=== PATIENT | female | born 1930 | race Caucasian/White ===

== ENCOUNTER 2018-10-18 10:42 | Inpatient (IN) | payer OTHER ==
--- NOTE | 2018-10-18 10:42 | EDPHY ---
H & P Time Seen by Provider: 10/18/18 10:42 HPI/ROS: CHIEF COMPLAINT: Head injury HISTORY OF PRESENT ILLNESS: Patient is a 88-year-old female brought here by EMS with reported ground level mechanical fall with reports of left scalp laceration. 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 She denies any loss of consciousness and denies pain at this time. She denies vision changes. She is on no blood thinners. She takes no prescribed medication according to her son who is her caregiver but did not witness the fall this morning. REVIEW OF SYSTEMS: Constitutional: No fever, no chills. Eyes: No discharge. ENT: No sore throat. Cardiovascular: No chest pain, no palpitations. Respiratory: No cough, no shortness of breath. Gastrointestinal: No abdominal pain, no vomiting. Genitourinary: No hematuria. Musculoskeletal: No back pain. Skin: No rashes. Neurological: No headache. Physical Exam: General Appearance: Alert and no distress. ENT: normal dentition. No tonsillar exudate or swelling. Eyes: Pupils equal and round no injection. Respiratory: Chest is nontender, lungs are clear to auscultation. Cardiac: regular rate and rhythm. No lower extremity edema Gastrointestinal: Abdomen is soft and nontender, no masses, bowel sounds normal. Musculoskeletal: Neck is supple and nontender. No hip pain. Full range of motion of bilateral legs Extremities have full range of motion and are nontender without deformity Skin: No rashes or lesions. 2 cm laceration superior to the left eyebrow Neuro: Cranial nerves grossly intact. No nystagmus. No ulnar drift. Equal grasp bilateral hands. Ambulatory. Constitutional: Initial Vital Signs Temperature (C) 36.4 C 10/18/18 10:42 Heart Rate 48 L 10/18/18 10:42 Respiratory Rate 18 10/18/18 10:42 Blood Pressure 211/88 H 10/18/18 10:42 O2 Sat (%) 95 10/18/18 10:42 O2 Delivery Mode Room Air Allergies/Adverse Reactions: Penicillins Allergy (Verified 10/18/18 14:32) Unknown Home Medications: Medication Instructions Recorded Herbals/Supplements -Info Only 1 ea PO DAILY 10/18/18 Medical Decision Making - Diagnostics Imaging Results: Imaging Impressions Head CT 10/18/18 10:47 Impression: 1. No acute intracranial process or cervical spine fracture/subluxation. 2. Age-appropriate generalized cerebral volume loss with sequelae of chronic microvascular ischemic disease. 3. Old left cerebellar infarct. 4. Multilevel degenerative spondylosis of the cervical spine. 5. Heterogeneity and expansion of the left skull base, probably related to chronic sinusitis. Findings and recommendations discussed with Jose Luis Engle at 1144 hour , 10/18/2018. Cervical Spine CT 10/18/18 10:48 Impression: 1. No acute intracranial process or cervical spine fracture/subluxation. 2. Age-appropriate generalized cerebral volume loss with sequelae of chronic microvascular ischemic disease. 3. Old left cerebellar infarct. 4. Multilevel degenerative spondylosis of the cervical spine. 5. Heterogeneity and expansion of the left skull base, probably related to chronic sinusitis. Findings and recommendations discussed with Jose Luis Engle at 1144 hour , 10/18/2018. Procedures: Procedure: Laceration repair. Verbal consent was obtained from the patient. The 2.5 cm laceration on the left forehead was anesthetized in the usual fashion. The wound was irrigated, draped and explored to its base with a gloved finger. There were no deep structures involved. No tendon injury was identified. The wound was repaired with 5-0 nylon, 7 sutures were placed. The wound repair was without complication. The procedure was performed by myself. ED Course/Re-evaluation: 80-year-old female here with mechanical fall resulting in scalp laceration. Imaging was negative for fracture or bleed. She was at her neurologic baseline. On further investigation is found that patient was having difficulty ambulating and her caregiver which is or some was having difficulty taking care of her. She was admitted for further treatment evaluation of increased weakness , failure to thrive and possible placement in rehab. - Data Points Laboratory Results: Laboratory Results 10/18/18 14:28 10/18/18 14:28 10/18/18 10/18/18 14:28 14:28 WBC 7.85 10^3/uL 10^3/uL (3.80-9.50) RBC 4.72 10^6/uL 10^6/uL (4.18-5.33) Hgb 15.1 g/dL g/dL (12.6-16.3) Hct 45.9 % % (38.0-47.0) MCV 97.2 fL fL (81.5-99.8) MCH 32.0 pg pg (27.9-34.1) MCHC 32.9 g/dL g/dL (32.4-36.7) RDW 13.0 % % (11.5-15.2) Plt Count 236 10^3/uL 10^3/uL (150-400) MPV 11.6 fL fL (8.7-11.7) Neut % (Auto) 58.9 % % (39.3-74.2) Lymph % (Auto) 32.6 % % (15.0-45.0) [place] % (Auto) 5.5 % % (4.5-13.0) Eos % (Auto) 2.3 % % (0.6-7.6) Baso % (Auto) 0.4 % % (0.3-1.7) Nucleat RBC Rel Count 0.0 % % (0.0-0.2) Absolute Neuts (auto) 4.63 10^3/uL 10^3/uL (1.70-6.50) Absolute Lymphs (auto) 2.56 10^3/uL 10^3/uL (1.00-3.00) Absolute Monos (auto) 0.43 10^3/uL 10^3/uL (0.30-0.80) Absolute Eos (auto) 0.18 10^3/uL 10^3/uL (0.03-0.40) Absolute Basos (auto) 0.03 10^3/uL 10^3/uL (0.02-0.10) Absolute Nucleated RBC 0.00 10^3/uL 10^3/uL (0-0.01) Immature Gran % 0.3 % % (0.0-1.1) Immature Gran # 0.02 10^3/uL 10^3/uL (0.00-0.10) Sodium 141 mEq/L mEq/L (135-145) Potassium 3.7 mEq/L mEq/L (3.5-5.2) Chloride 106 mEq/L mEq/L (97-110) Carbon Dioxide 24 mEq/l mEq/l (22-31) Anion Gap 11 mEq/L mEq/L (6-14) BUN 26 mg/dL H mg/dL (7-23) Creatinine 0.7 mg/dL mg/dL (0.6-1.0) Estimated GFR > 60 Glucose 106 mg/dL H mg/dL (70-100) Calcium 9.2 mg/dL mg/dL (8.5-10.4)
[2018-10-18 14:37] LABS: PLATELET COUNT 236 10^3/uL (150-400)
[2018-10-18] MEDS ORDERED: ONDANSETRON DISINTEGRATING 4 MG TAB PO PRN (15:13)
[2018-10-18] MEDS ORDERED: ACETAMINOPHEN 325 MG TAB PO PRN (15:13)
[2018-10-18] MEDS ORDERED: ONDANSETRON 4 MG/2 ML VIAL IVP PRN (15:13)
--- NOTE | 2018-10-18 15:18 | PDGENHP ---
History and Physical - Chief Complaint Fall - History of Present Illness Lindsey Kohli is an 88 yo F with a PMHx of HTN who presents to [facility] after mechanicall fall this morning. Her son is at the bedside who has helped with hx taking. They report that patient was bending over to get batteries for her hearing when she lost balance and fell. It is reported that she hit the L side of her head and face. She denies any LOC, chest pain, SOB, palpitations, LH/ dizziness, headache, n/v, d/c. Per her son, this is the 3rd time she has falled over the past 6 months. History Information - Allergies/Home Medication List Allergies/Adverse Reactions: Penicillins Allergy (Verified 10/18/18 14:32) Unknown Home Medications: Herbals/Supplements -Info Only 1 ea PO DAILY 10/18/18 [Last Taken Unknown] I have personally reviewed and updated: family history, medical history, social history, surgical history - Past Medical History hypertension - Surgical History Reports: no pertinent surgical hx - Family History Positive for: non-pertinent - Social History Smoking Status: Never smoked Review of Systems Review of Systems: ROS: 10pt was reviewed & negative except for what was stated in HPI & below Physical Exam Physical Exam: Temp Pulse Resp BP Pulse Ox 36.4 C 81 18 172/98 H 98 10/18/18 10:42 10/18/18 12:30 10/18/18 12:30 10/18/18 12:30 10/18/18 12:30 Constitutional: no apparent distress Eyes: PERRL Ears, Nose, Mouth, Throat: moist mucous membranes Cardiovascular: regular rate and rhythym Respiratory: no respiratory distress Gastrointestinal: soft, non-tender abdomen Skin: warm Musculoskeletal: generalized weakness Neurologic: AAOx3 Psychiatric: interacting appropriately Lab Data & Imaging Review 10/18/18 14:28 10/18/18 14:28 WBC 7.85 10^3/uL (3.80-9.50) 10/18/18 14:28 RBC 4.72 10^6/uL (4.18-5.33) 10/18/18 14:28 Hgb 15.1 g/dL (12.6-16.3) 10/18/18 14:28 Hct 45.9 % (38.0-47.0) 10/18/18 14:28 MCV 97.2 fL (81.5-99.8) 10/18/18 14: MCH 32.0 pg (27.9-34.1) 10/18/18 14: MCHC 32.9 g/dL (32.4-36.7) 10/18/18 14: RDW 13.0 % (11.5-15.2) 10/18/18 14:28 Plt Count 236 10^3/uL (150-400) 10/18/18 14:28 MPV 11.6 fL (8.7-11.7) 10/18/18 14:28 Neut % (Auto) 58.9 % (39.3-74.2) 10/18/18 14: Lymph % (Auto) 32.6 % (15.0-45.0) 10/18/18 14: [place] % (Auto) 5.5 % (4.5-13.0) 10/18/18 14: Eos % (Auto) 2.3 % (0.6-7.6) 10/18/18 14: Baso % (Auto) 0.4 % (0.3-1.7) 10/18/18 14: Nucleat RBC Rel Count 0.0 % (0.0-0.2) 10/18/18 14: Absolute Neuts (auto) 4.63 10^3/uL (1.70-6.50) 10/18/18 14: Absolute Lymphs (auto) 2.56 10^3/uL (1.00-3.00) 10/18/18 14: Absolute Monos (auto) 0.43 10^3/uL (0.30-0.80) 10/18/18 14: Absolute Eos (auto) 0.18 10^3/uL (0.03-0.40) 10/18/18 14: Absolute Basos (auto) 0.03 10^3/uL (0.02-0.10) 10/18/18 14: Absolute Nucleated RBC 0.00 10^3/uL (0-0.01) 10/18/18 14: Immature Gran % 0.3 % (0.0-1.1) 10/18/18 14: Immature Gran # 0.02 10^3/uL (0.00-0.10) 10/18/18 14:28 Sodium 141 mEq/L (135-145) 10/18/18 14:28 Potassium 3.7 mEq/L (3.5-5.2) 10/18/18 14:28 Chloride 106 mEq/L (97-110) 10/18/18 14:28 Carbon Dioxide 24 mEq/l (22-31) 10/18/18 14:28 Anion Gap 11 mEq/L (6-14) 10/18/18 14:28 BUN 26 mg/dL (7-23) H 10/18/18 14:28 Creatinine 0.7 mg/dL (0.6-1.0) 10/18/18 14:28 Estimated GFR > 60 10/18/18 14:28 Glucose 106 mg/dL (70-100) H 10/18/18 14:28 Calcium 9.2 mg/dL (8.5-10.4) 10/18/18 14:28 Assessment & Plan Assessment: Mechanical Falls - Fall this AM while bending over - Reported this is 3rd fall in 3 months - Pt denies any prodromal symptoms - Likely mechanical in nature - Head CT, C-Spine on admission negative for acute injury - PT/OT ordered - Will check orthostatics given mildly elevated BUN Hypertensive Urgency - BP initially elevated to 211/88, improved to 172/98 with no intervention - Has a hx of HTN per son, however stopped BP medications years ago due to side effects - Will continue to monitor BP, will hold off on adding oral antihypertensives at this time - PRN Hydralazine for SBP >180 FEN: Regular DVT PPx; SubQ Heparin Code: DNR Dispo: Admit to Observation
--- NOTE | 2018-10-18 17:32 | ASMTCMCOM ---
CM Note CM Note Notes: Pt presented to ED via EMS from home after having a fall while bending over to hop picker her hearing aid battery. Pt fell and hit the left side of her head and face. Pt admitted for multiple falls, FTT, HTN and is very hard of hearing without her hearing aids. Pt is weak and was unable to stand or ambulate safely in the ED. Pt lives at home with her son, Darío ([phone]), who has been the / primary caregiver of the pt for the past 4-5 years. Darío is at bedside and states pt has had approx 4 falls in the past 4 months. Darío states he is having increased difficulty caring for the pt recently and states "I do everything all the time, it is very straining." Pt usually uses a walker and is able to dress herself, get to and from the bathroom without assistance, etc. but has difficulty getting up their stairs, bathing, cooking, etc. Darío states pt "eats like a horse" and has gained weight recently. We discussed additional homecare assistance and pt and Darío are interested in non-skilled and skilled options. We also discussed that pt may be recommended to DC to SNF for short term rehab and Darío was at first resistant to the idea but later was open to it. Pt's PCP is Dr Ryann Altamirano at [facility]. This CM called PC on their [facility] ) ( # for CM use only) and spoke with ARNOLDO Lauren; pt's last visit at was 06/23/17. Xin also states pt was visited by one of their Behavioral Health Providers at home in May 2018. CM relayed pt's recent falls, reason for ED visit & admission, and that if pt is discharged home, pt's son Darío could use additional home assistance/support and care coordination. CM requested PC fax over pt's chart summary. Received faxed pt's summary; pt's allergic to Penicillins but otherwise the summary did not list any Home Medications, or Surgical history. Pt's 'Problem List' included "social isolation related to decreased hearing," Status Post CVA, and Acute UTI. PT/OT ordered. Exact DC needs TBD but anticipate pt to DC Home w/HHC vs SNF. CM to follow. Date Signed: 10/18/2018 05:31 PM Electronically Signed By:Seema Ireland RN
[2018-10-18] MEDS: HEPARIN 5,000 UNIT/0.5 ML INJ SC SCH (21:34)
--- NOTE | 2018-10-18 22:14 | CPEKG ---
Test Reason : OPEN Blood Pressure : / mmHG Vent. Rate : 099 BPM Atrial Rate : 103 BPM P-R Int : 185 ms QRS Dur : 091 ms QT Int : 375 ms P-R-T Axes : 076 -61 063 degrees QTc Int : 482 ms Sinus tachycardia Atrial premature complex Left anterior fascicular block Left ventricular hypertrophy Anterior Q waves, possibly due to LVH Confirmed by Varsha Polo ([id number]) on 10/18/2018 10:14:30 PM Referred By: Lynn Mcfadden Confirmed By:Varsha Polo
[2018-10-19] MEDS: HEPARIN 5,000 UNIT/0.5 ML INJ SC SCH ×2 (10:43→22:25)
--- NOTE | 2018-10-19 13:52 | HOSPPROG ---
Hospitalist Progress Note Assessment/Plan: 88 year old female with pmh of HTN admitted after suffering a mechanical fall. Mechanical Falls- mechanical fall per son. apparently has become generally weaker over the last few months and is falling more. She has a laceration over her left eye with sutures in place and echymoses. Imaging reviewed as patient is new to me and no acute abnormality. Labs reviewed and are WNL. -PT/OT -likely needs placement. Hypertensive Urgency- resolved but still with elevated BP. She takes no medications as her son apparently stopped them years ago. -monitor BP -cont hydralazine for systolic over 170 FEN: Regular DVT PPx; SubQ Heparin Code: DNR Dispo: likely dc to snf, if able today, if not then in am. Subjective: no complaints. misses her son. no pain, or other complaints. Objective: Vital Signs Temp Pulse Resp BP Pulse Ox 36.4 C 84 16 160/78 H 94 10/19/18 13:30 10/19/18 13:30 10/19/18 13:30 10/19/18 13:30 10/19/18 13:30 10/18/18 10/19/18 10/20/18 05:59 05:59 05:59 Output Total 300 Balance -300 - Physical Exam Constitutional: no apparent distress Eyes: PERRL, anicteric sclera, EOMI Ears, Nose, Mouth, Throat: moist mucous membranes, hearing normal, ears appear normal, no oral mucosal ulcers Cardiovascular: regular rate and rhythym, no murmur, rub, or gallop Respiratory: no respiratory distress, no rales or rhonchi, clear to auscultation Gastrointestinal: normoactive bowel sounds, soft, non-tender abdomen, no palpable masses Genitourinary: no bladder fullness, no bladder tenderness, no renal bruits Skin: other (sutures in place over left eye brow. Echymoses to left eye ) Musculoskeletal: generalized weakness Neurologic: other (knows she is in [place], and her name, does not know what year or what hospital. ) Psychiatric: poor judgement, poor memory ICD10 Worksheet Patient Problems: Problems Problem Status Onset Weakness Acute - ICD10 Problem Qualifiers (1) Weakness
--- NOTE | 2018-10-19 18:00 | PDMN ---
Medical Necessity Medical necessity: [facility] General Admission: 88 yo w/ mechanical fall (3rd fall in last 6mo). Initially OBS for workup but pt is generally weak w/ reports of worsening weakness over last few months, multiple falls. PT/OT consults. Per OT Pt limited by decreased overall endurance, decreased safety/ mobility, and poor attention to safety. All which interfere with safe/I ADLS. Pt is a significant fall risk. Pt will require additional MN as she is unsafe to go home. Change to IP status 10/19/18@1730 per MD order.
[2018-10-20 05:42] LABS: PLATELET COUNT 180 10^3/uL (150-400)
[2018-10-20] MEDS: hydrALAZINE 20 MG/ML VIAL IVP PRN (08:22)
[2018-10-20] MEDS: HEPARIN 5,000 UNIT/0.5 ML INJ SC SCH ×2 (08:30→20:03)
[2018-10-20] MEDS ORDERED: amLODIPine BESYLATE 5 MG TAB PO SCH (09:00)
--- NOTE | 2018-10-20 09:18 | ASMTCMCOM ---
CM Note CM Note Notes: LATE NOTE ENTRY - NOTE IS REFLECTIVE OF 10/19/18 CM notified by Alyce, PT and [employer] that pt reported to them that her son is mean and calls her stupid. CM encouraged them to call APS if they felt like it was necessary. CM spoke to Dr. Rodriguez later on during the day and he reported that pt is pretty confused. CM did not make an APS report. PT is recommending SNF. CM called pts son Darío and left a msg requesting a call back. CM to follow. Plan: TBD Date Signed: 10/20/2018 09:18 AM Electronically Signed By:SUZY Garcia
--- NOTE | 2018-10-20 12:37 | ASMTCMCOM ---
CM Note CM Note Notes: I spoke with patient's son about current d/c recommendation for SNF. He is amenable but wants to tour [facility] first. Jefferson from [facility] here to assess patient and feels that they can clinically accept. Case Management will follow. Current Discharge plan: [facility] Date Signed: 10/20/2018 12:36 PM Electronically Signed By:Adilene Benoit RN
--- NOTE | 2018-10-20 15:03 | HOSPPROG ---
Hospitalist Progress Note Assessment/Plan: 88 year old female with pmh of HTN admitted after suffering a mechanical fall. Mechanical Falls- mechanical fall per son. apparently has become generally weaker over the last few months and is falling more. She has a laceration over her left eye with sutures in place and echymoses. Imaging reviewed as patient is new to me and no acute abnormality. Labs reviewed and are WNL. -PT/OT -likely needs placement. Hypertensive Urgency- resolved but still with elevated BP. She takes no medications as her son apparently stopped them years ago. I restarted norvasc at 5mg. Her son seemed concerned that this would make the patient confused. She has seemed to respond appropriately so far. -monitor BP -scheduled norvasc 5mg daily -cont hydralazine for systolic over 170 FEN: Regular DVT PPx; SubQ Heparin Code: DNR Dispo: Will need 3 midnights for discharge to SNF. likely in am. Subjective: patient in good spirits. no complaints. Objective: Vital Signs Temp Pulse Resp BP Pulse Ox 36.4 C 80 14 146/84 H 94 10/20/18 12:12 10/20/18 12:12 10/20/18 12:12 10/20/18 12:12 10/20/18 12:12 Laboratory Results 10/20/18 04:58 10/20/18 04:58 10/19/18 10/20/18 10/21/18 05:59 05:59 05:59 Intake Total 240 Balance 240 - Physical Exam Constitutional: no apparent distress, appears nourished, not in pain Eyes: PERRL, anicteric sclera, EOMI Ears, Nose, Mouth, Throat: moist mucous membranes, hearing normal, ears appear normal, no oral mucosal ulcers Cardiovascular: regular rate and rhythym, no murmur, rub, or gallop Respiratory: no respiratory distress, no rales or rhonchi, clear to auscultation Gastrointestinal: normoactive bowel sounds, soft, non-tender abdomen, no palpable masses Genitourinary: no bladder fullness, no bladder tenderness, no renal bruits Skin: no rashes or abrasions, no fluctuance, no induration Musculoskeletal: full muscle strength, no muscle tenderness, normal joint ROM Neurologic: AAOx3, sensation intact bilaterally Psychiatric: interacting appropriately, not anxious, not encephalopathic, thought process linear Lymph, Heme, Immunologic: no cervical LAD, no supraclavicular LAD ICD10 Worksheet Patient Problems: Problems Problem Status Onset Weakness Acute - ICD10 Problem Qualifiers (1) Weakness
[2018-10-21] MEDS: hydrALAZINE 20 MG/ML VIAL IVP PRN (05:02)
[2018-10-21 09:12] LABS: PLATELET COUNT 235 10^3/uL (150-400)
[2018-10-21] MEDS: HEPARIN 5,000 UNIT/0.5 ML INJ SC SCH ×2 (09:47→20:09)
--- NOTE | 2018-10-21 12:56 | HOSPPROG ---
Hospitalist Progress Note Assessment/Plan: 88 year old female with pmh of HTN admitted after suffering a mechanical fall. Mechanical Falls- mechanical fall per son. apparently has become generally weaker over the last few months and is falling more. She has a laceration over her left eye with sutures in place and echymoses. Imaging reviewed as patient is new to me and no acute abnormality. Labs reviewed and are WNL. -PT/OT -needs sniff placement. Awaiting 3rd midnight due to Medicare Hypertensive Urgency- resolved but still with elevated BP. She takes no medications as her son apparently stopped them years ago. I restarted norvasc at 5mg. Her son seemed concerned that this would make the patient confused. She has seemed to respond appropriately so far. -monitor BP -scheduled norvasc 5mg daily -cont hydralazine for systolic over 170 FEN: Regular DVT PPx; SubQ Heparin Code: DNR Dispo: Will need 3 midnights for discharge to SNF. likely in am. Subjective: In good spirits today no complaints Objective: Vital Signs Temp Pulse Resp BP Pulse Ox 36.3 C 64 17 140/82 H 93 10/21/18 07:25 10/21/18 07:25 10/21/18 07:25 10/21/18 09:45 10/21/18 07:25 Laboratory Results 10/21/18 08:50 10/21/18 08:50 10/20/18 10/21/18 10/22/18 05:59 05:59 05:59 Intake Total 240 700 Balance 240 700 - Physical Exam Constitutional: no apparent distress, appears nourished, not in pain Eyes: PERRL, anicteric sclera, EOMI Ears, Nose, Mouth, Throat: moist mucous membranes, hearing normal, ears appear normal, no oral mucosal ulcers Cardiovascular: regular rate and rhythym, no murmur, rub, or gallop Respiratory: no respiratory distress, no rales or rhonchi, clear to auscultation Gastrointestinal: normoactive bowel sounds, soft, non-tender abdomen, no palpable masses Genitourinary: no bladder fullness, no bladder tenderness, no renal bruits Skin: no rashes or abrasions, no fluctuance, no induration Musculoskeletal: full muscle strength, no muscle tenderness, normal joint ROM Neurologic: AAOx3, sensation intact bilaterally Psychiatric: interacting appropriately, not anxious, not encephalopathic, thought process linear Lymph, Heme, Immunologic: no cervical LAD, no supraclavicular LAD ICD10 Worksheet Patient Problems: Problems Problem Status Onset Weakness Acute - ICD10 Problem Qualifiers (1) Weakness
[2018-10-22 04:55] LABS: PLATELET COUNT 183 10^3/uL (150-400)
[2018-10-22 08:02] VITALS: BP 168/92
[2018-10-22] MEDS: HEPARIN 5,000 UNIT/0.5 ML INJ SC SCH (08:45)
--- NOTE | 2018-10-22 08:48 | HOSPPROG ---
Hospitalist Progress Note Assessment/Plan: #Mechanical falls #Hypertensive urgency: improved with Norvasc #Vit D insufficiency See dictated DC summary today for full A&P Subjective: no pain Objective: Vital Signs Temp Pulse Resp BP Pulse Ox 36.5 C 56 L 17 168/92 H 92 10/22/18 08:00 10/22/18 08:00 10/22/18 08:00 10/22/18 08:00 10/22/18 08:00 Laboratory Results 10/22/18 04:30 10/22/18 04:30 10/21/18 10/22/18 10/23/18 05:59 05:59 05:59 Intake Total 700 100 Output Total 200 Balance 700 -100 - Physical Exam Constitutional: no apparent distress Eyes: PERRL Ears, Nose, Mouth, Throat: hard of hearing, other (laceration above left brow, sutured) Cardiovascular: regular rate and rhythym Respiratory: no respiratory distress Gastrointestinal: normoactive bowel sounds Genitourinary: no bladder fullness Skin: warm Musculoskeletal: full muscle strength Neurologic: CN II-XII Intact ICD10 Worksheet Patient Problems: Problems Problem Status Onset Weakness Acute
--- NOTE | 2018-10-22 11:54 | ASMTCMCOM ---
CM Note CM Note Notes: Updated OT notes and sent to [facility]. D/C Plan: [facility] Date Signed: 10/22/2018 11:54 AM Electronically Signed By:Mandy Lozano
--- NOTE | 2018-10-22 12:35 | PDIAF ---
- Diagnosis Diagnosis: falls, hypertension Code Status: Do Not Resuscitate - Medication Management Discharge Medications: electronically signed and located in the Home Medication List. - Orders Services needed: Registered Nurse, Physical Therapy, Occupational Therapy Diet Recommendation: no restrictions on diet Diet Texture: Regular Texture Diet Sutures/[place] Site: left forehead Date to Remove Sutures/[place]: 10/25/18 Additional Instructions: Norvasc and Lisinopril are new meds. Monitor blood pressure closely - Labs/Radiology BMP Date: 10/24/18 (lisinopril just started) - Follow Up Care Current Providers and Referrals: Patient,NotPresent [Unknown] - As per Instructions
--- NOTE | 2018-10-22 15:09 | GDS ---
[f rep st] DISCHARGE SUMMARY DISCHARGE DIAGNOSES: 1. Mechanical fall. 2. Hypertensive urgency. HPI: An 88-year-old female with a history of hypertension who presents to [facility] after a mechanical fall the date of admission. Her son was at bedside helping with history. She was bending over to get batteries for her hearing aid when she lost balance and fell. She hit the left side of her head and face. Denies loss of consciousness or any prodromal chest pain, shortness of breath, palpitations. Per son, this is the 3rd fall in the last 6 months. HOSPITAL COURSE BY PROBLEM: 1. Mechanical falls: This has been progressing over the last several months, unsafe at home. She will be discharged to SNF for rehab. Vitamin D level is low at 19; add Vit D 2. Left forehead laceration: suture removal Oct 25. 3. Hypertensive urgency: meds were stopped by son several years ago. Blood pressure initially 211/88. This was improved with the addition of Norvasc. Add low-dose lisinopril 2.5, which can be up titrated as needed. We will check kidney function in the next couple of days. 4. Vitamin D insufficiency: daily Vitamin D added DISPOSITION: The patient is stable for discharge to [facility]. NEW MEDICATIONS: Norvasc 10 mg daily, lisinopril 2.5 mg daily, Vitamin D FOLLOWUP: 1. BMP in the next few days. 2. Check renal function with lisinopril. 3. Will need vitamin D level repeated after initiation of treatment. TIME SPENT ON DISCHARGE: Greater than 30 minutes at bedside with patient and coordinating discharge with Case Management. /[id number]/MODL MTDD
--- NOTE | 2018-10-23 14:45 | ASDISCHSUM ---
Discharge Information Plan Status:SNF Medically Cleared to Leave:10/21/2018 Discharge Date:10/22/2018 03:50 PM CM D/C Disposition:Shelter Facility ADT D/C Disposition:Shelter Facility Projected Discharge Date:10/22/2018 11:00 AM Transportation at D/C: Discharge Delay Reason: Follow-Up Date:10/22/2018 11:00 AM Discharge Slot: Final Diagnosis: Placement Information Referral Type:*Fdc/SNF Referral ID:[id number] Provider Name:[facility] Address 1:[address] Address 2: City:[place] Selection Factors: State:[place] Patient Contact Information Contact Name:BRIAN Relationship:Son Address:[address] [place] [address] Work Phone: [facility]:[employer] Alternate Phone: [facility]/Zip Code:[place] [address] Email: Financial Information Financial Class:Medicare Primary Plan Desc:MEDICARE INPATIENT Primary Plan Number:[id number] Secondary Plan Desc:[facility] Secondary Plan Number:[id number] Assessment Information [facility] CM Progress Note CM Note CM Note Notes: Pt presented to ED via EMS from home after having a fall while bending over to pick and shovel man her hearing aid battery. Pt fell and hit the left side of her head and face. Pt admitted for multiple falls, FTT, HTN and is very hard of hearing without her hearing aids. Pt is weak and was unable to stand or ambulate safely in the ED. Pt lives at home with her son, Darío ([phone]), who has been the 29/03 primary caregiver of the pt for the past 4-5 years. Darío is at bedside and states pt has had approx 4 falls in the past 4 months. Darío states he is having increased difficulty caring for the pt recently and states "I do everything all the time, it is very straining." Pt usually uses a walker and is able to dress herself, get to and from the bathroom without assistance, etc. but has difficulty getting up their stairs, bathing, cooking, etc. Darío states pt "eats like a horse" and has gained weight recently. We discussed additional homecare assistance and pt and Darío are interested in non-skilled and skilled options. We also discussed that pt may be recommended to DC to SNF for short term rehab and Darío was at first resistant to the idea but later was open to it. Pt's PCP is Dr Ryann Altamirano at [facility]. This CM called PC on their [facility] ) ( # for CM use only) and spoke with ARNOLDO Lauren; pt's last visit at was 06/23/17. Xin also states pt was visited by one of their Behavioral Health Providers at home in May 2018. CM relayed pt's recent falls, reason for ED visit & admission, and that if pt is discharged home, pt's son Darío could use additional home assistance/support and care coordination. CM requested PC fax over pt's chart summary. Received faxed pt's summary; pt's allergic to Penicillins but otherwise the summary did not list any Home Medications, or Surgical history. Pt's 'Problem List' included "social isolation related to decreased hearing," Status Post CVA, and Acute UTI. PT/OT ordered. Exact DC needs TBD but anticipate pt to DC Home w/HHC vs SNF. CM to follow. Date Signed: 10/18/2018 05:31 PM Electronically Signed By:Seema Ireland RN [facility] Progress Note CM Note CM Note Notes: LATE NOTE ENTRY - NOTE IS REFLECTIVE OF 10/19/18 CM notified by NIGEL Mead and [employer] that pt reported to them that her son is mean and calls her stupid. CM encouraged them to call APS if they felt like it was necessary. CM spoke to Dr. Michael later on during the day and he reported that pt is pretty confused. CM did not make an APS report. PT is recommending SNF. CM called pts son Darío and left a msg requesting a call back. CM to follow. Plan: TBD Date Signed: 10/20/2018 09:18 AM Electronically Signed By:SUZY Garcia [facility] CM Progress Note CM Note CM Note Notes: I spoke with patient's son about current d/c recommendation for SNF. He is amenable but wants to tour [facility] first. Jefferson from [facility] here to assess patient and feels that they can clinically accept. Case Management will follow. Current CM Discharge plan: [facility] Date Signed: 10/20/2018 12:36 PM Electronically Signed By:Adilene Benoit RN [facility] Progress Note CM Note CM Note Notes: Updated OT notes and sent to [facility] [place]. D/C Plan: [facility] Date Signed: 10/22/2018 11:54 AM Electronically Signed By:Mandy Lozano Intervention Information Intervention Type:*Incorrect Registration Date of Service:10/18/2018 04:40 PM Patient Type:Inpatient Staff Member:Veronica Glass Hours: Discipline: Severity: Comment: Intervention Type:*JAMES-Signed Date of Service:10/19/2018 12:14 PM Patient Type:Observation Staff Member:Reina Linda Hours: Discipline: Severity: Comment:
== END 2018-10-22 15:50 | DRG 93 ==
LOC: EDBD → EDUNIT# → INTOOBSV 14:29 → F1N 16:21 → OBSVTOIN 10-19 17:30
PROVIDERS: ADMIT Internal Medicine; ATTEND Internal Medicine
PROC: 0HQ1XZZ Repair Face Skin, External Approach (ICD-10-PCS; principal; 2018-10-18)
DX: R29.6 Repeated falls (principal); S01.81XA Laceration without foreign body of other part of head, initial encounter; I16.0 Hypertensive urgency; T46.5X6A Underdosing of other antihypertensive drugs, initial encounter; E63.9 Nutritional deficiency, unspecified; W18.39XA Other fall on same level, initial encounter; Y92.019 Unspecified place in single-family (private) house as the place of occurrence of the external cause; Z66 Do not resuscitate
CPT/HCPCS: 97116-GP; 97161-GP; 97166-GO; 97530-GP; 97535-GO; G0378; J0360; J1644